=== PATIENT | male | born 2000 | race Caucasian/White ===

== ENCOUNTER 2025-04-20 14:41 | Outpatient (AMB) | payer BC, SELFPAY ==
--- NOTE | 2025-04-20 14:59 | A.OFFPC_ITS ---
Vital Signs 04/20/25 15:08 Height 5 ft 8 in Weight 231 lb 8 oz BMI 35.2 BP 116/62 Blood Pressure Location Rt brachial Position Sitting Respiration 15 Pulse 80 Pulse Source Pulse Oximeter Temp 98 F Temp Source Temporal Artery Scan Pulse Oximetry (%) 98 Oxygen Delivery Method Room Air Intake Visit Reasons: requesting CPE Intake Note: Andrew presents in the office today to establish care. 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 ?? Prior PCP:?[facility] Last office visit/CPE:? > 1 yr Acute issue(s):? Est Care ?? PMHx:?Epistaxis SurgHx:?None FHx:? Mom: HTN. Dad: IBS. SocHx: Nonsmoker. EtOH: 3 dr a week. No drugs PFSH Medical History (Updated 04/20/25 @ 15:59 by Mil Hall MD) Bleeding nose Family History (Updated 04/20/25 @ 15:15 by Bernadette Cramer CMA) Mother FH: mental illness Anxiety and depression Substance abuse Alcoholism Hypertension Father FH: mental illness Anxiety and depression Substance abuse Alcoholism Maternal Grandmother Hypertension Hyperlipidemia Social History (Updated 04/20/25 @ 15:08 by Bernadette Cramer CMA) Housing: Apartment Alcohol intake: current Patient Tobacco Use Status: Never used Tobacco e-Cigarette/Vaping Use: Never Used Second Hand Smoke Exposure: Yes Use of substances other than those prescribed or required for medical reasons: No service: No Current occupational status: employed 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 1. Little interest or pleasure in doing things: not at all 2. Feeling down, depressed, or hopeless: not at all 3. Trouble falling or staying asleep, or sleeping too much: not at all 4. Feeling tired or having little energy: not at all 5. Poor appetite or overeating: not at all 6. Feeling bad about yourself - or that you are a failure or have let yourself or your family down: not at all 7. Trouble concentrating on things, such as reading the newspaper or watching television: not at all 8. Moving or speaking so slowly that other people could have noticed. Or the opposite - being so fidgety or restless that you have been moving around a lot more than usual: not at all 9. Thoughts that you would be better off or of hurting yourself in some way: not at all Total score: 0 Depression Screening Interpretation: Negative Depression Screening Done: Yes 00525 - PHQ-9 Billing: Yes Source: Developed by Drs. Sterling Mcguire, Inocencia Carver, Dionicio Alex and colleagues, with an educational leeanna from [employer]. Thrive Questionnaire Date Thrive assessed: 04/20/25 I am a: Patient What is your living situation today?: I have a steady place to live Within the past 12 months, did the food you bought not last and you didn't have the money to get more?: Never true Within the past 12 months, did you worry whether your food would run out before you got money to buy more?: Never true Do you have trouble paying for medicines?: No Do you have trouble getting transportation to medical appointments?: No Do you have trouble paying your heating and electricity bill?: No Do you have trouble taking care of your child, family member or friend?: No Do you have trouble with day-to-day activities such as bathing, preparing meals, shopping, managing finances, etc.?: No Are you currently unemployed and looking for a job?: No Are you interested in more education?: No Please select the resources that you would like help with: None Currently or been in a relationship where the following occur: No concerns reported THRIVE Score: 0 AUDIT C Alcohol Use Questionnaire (AUDIT-C) 1. How often do you have a drink containing alcohol?: 2-3 times a week 2. How many drinks containing alcohol do you have on a typical day when you are drinking?: 1 or 2 3. How often do you have six or more drinks on one occasion?: Never Total Score: 3 ROLANDO-7 AMB Questionnaire ROLANDO-7 Date ROLANDO - 7 assessed: 04/20/25 Feeling nervous, anxious, or on edge: 1 = Several days Not being able to stop or control worryin = Not at all Worrying too much about different things: 1 = Several days Trouble relaxin = Not at all Being so restless that it is hard to sit still: 0 = Not at all Becoming easily annoyed or irritable: 0 = Not at all Feeling afraid as if something awful might happen: 0 = Not at all Total ROLANDO-7 score (0-4 normal; 5-9 mild; 10-14 moderate; 15-21 severe): 2 Source: Developed by Drs. Sterling Mcguire, Inocencia Carver, Dionicio Alex and colleagues, with an educational leeanna from [employer]. ROLANDO-7 Assessment Billing ROLANDO-7 Assessment Tool: ROLANDO-7 Assessment 55940 Review of Systems Const Denies chills, Denies fatigue, Denies fever(s), Denies headache(s) and Denies weakness Eyes Denies change in vision ENT Denies dizziness and Denies headache(s) Card Denies chest pain, Denies lightheadedness, Denies dyspnea and Denies other (Palpitations) Resp Denies cough, Denies dyspnea, Denies wheezing and Denies other ( shortness of breath) GI Denies abdominal pain, Denies melena, Denies hematochezia, Denies change in bowel habits, Denies dyspepsia and Denies nausea Denies hematuria and Denies dysuria Musc Denies numbness and Denies tingling Skin/Breast Denies rash, Denies unusual bruising and Denies wounds Neuro Denies dizziness, Denies headache(s), Denies numbness, Denies Sensory deficit (Neuro), Denies tingling, Denies paresthesias and Denies weakness Psych Denies anxiety and Denies depression Endo Denies fatigue Connor/Lymph Denies easy bleeding and Denies easy bruising Aller/Immun Denies wheezing Physical exam (Primary Care) Vital Signs: Last Vital Signs Temp 98 F 04/20/25 15:08 Pulse 80 04/20/25 15:08 Resp 15 04/20/25 15:08 BP 116/62 04/20/25 15:08 Pulse Ox 98 04/20/25 15:08 Oxygen Delivery Method Room Air 04/20/25 15:08 BMI result Body Mass Index 35.2 Tobacco/Smoking Status: Tobacco use Status Tobacco use date assessed 04/20/25 04/20/25 15:12 Patient Tobacco Use Status Never used Tobacco 04/20/25 15:12 e-Cigarette/Vaping Use Never Used 04/20/25 15:12 PHQ-9: PHQ-9 Score PHQ-9: Total score 0 04/20/25 15:49 Depression Screening Interpretation: Negative Thrive Assessment: Date of Thrive Assessment Date Thrive assessed 04/20/25 04/20/25 15:02 Currently or been in a relationship where the following occur: No concerns reported Const General: no acute distress and well developed Nutritional Appearance: well nourished Orientation/consciousness: patient oriented x3 HENMT Head: Yes normocephalic and Yes atraumatic Ears: hearing grossly normal bilaterally and TM's normal bilaterally General nose exam: Normal external nose present and Normal nares present Mouth: Normal oral and palatal mucosa present and moist mucous membranes Teeth and gingiva: dentition normal Throat: Yes posterior oropharynx normal Eyes General: appearance normal, both eyes and all related structures Pupils: Equal, round and reactive pupils present EOM: EOMs intact bilaterally Neck Neck: Yes normal visual inspection, Yes no lymphadenopathy and Yes trachea midline Thyroid: Thyroid normal Carotids: no bruits Lymphatic: no lymphadenopathy noted Chest Chest palpation & inspection: normal inspection of the chest Resp Effort & Inspection: normal respiratory effort Auscultation: clear to auscultation bilaterally Cardio Rate: regular rate Rhythm: regular rhythm Heart sounds: S1 normal heart sound present, S2 normal heart sound present, no gallops, no murmurs and no rubs Bruits: no abdominal aortic bruits and no carotid bruits GI Palpation (GI): No Abdominal aortic bruit present, Soft to palpation, nontender, No hepatosplenomegaly present and No Rebound tenderness present Auscultation: normal bowel sounds General: Yes no CVA tenderness Back/Spine/Pelvis Back: no CVA tenderness Cervical Spine: cervical ROM normal and No Cervical spine tenderness Thoracic/Lumbar Spine: thoraco-lumbar ROM normal, No pain with thoraco-lumbar ROM, No thoracic spinal tenderness and No lumbar spinal tenderness Skin Lesions: no lesions Rashes: no rashes Trauma: no lacerations or abrasions Wounds: no wounds Nails: normal Neuro General: patient oriented x3 and gait normal Cranial nerves: Yes Equal, round and reactive pupils present Cognition (Neuro): normal cognition Gait exam (Neuro): Normal gait present Motor exam (neuro): 5/5 motor strength present throughout Sensory Exam: No Sensory deficit (Neuro) Deep tendon reflexes (DTR's): Right patellar reflex intensity grade: 2+ and Left patellar reflex intensity grade: 2+ Extrem General: Yes normal to inspection and No edema Psych Appearance: grossly normal Affect: normal affect Attitude: cooperative Thought process: Normal thought process present Coding Level of Care Code Est Pt Level 3 (97832) Est Pt Prev Care 18-39y(76130) Diagnoses Adult general medical exam Z00.00 Obesity, Class II, BMI 35-39.9 E66.812 Additional Codes ROLANDO-7 Assessment Billing - ROLANDO-7 Assessment Tool: ROLANDO-7 Assessment 07696 ([id number]) PHQ-9 - 70560 - PHQ-9 Billing: Yes ([id number]) Assessment & Plan Assessment & Plan (1) Adult general medical exam: Code(s): Z00.00 - Encounter for general adult medical examination without abnormal findings Category: Medical Plan: 25-year-old male presents as new patient for complete physical exam Exam within normal limits except as described below Encouraged healthy diet with active lifestyle and plenty of exercise (2) Obesity, Class II, BMI 35-39.9: Code(s): E66.812 - Obesity, class 2 Category: Medical Plan: Patient is working diet and exercise Orders: Orders UA CC w/rflx Micro + Cult Today Z00.00 - Encounter for general adult medical examination without abnormal findings Comprehensive [place]. Panel Fast Today Z00.00 - Encounter for general adult medical examination without abnormal findings Microalbumin, Random (w Creat) Today I10 - Essential (primary) hypertension, Z00.00 - Encounter for general adult medical examination without abnormal findings Lipid Panel Today Z00.00 - Encounter for general adult medical examination without abnormal findings TSH reflex Free T4 Today Z00.00 - Encounter for general adult medical examination without abnormal findings Hemoglobin A1c Today R73.01 - Impaired fasting glucose, Z00.00 - Encounter for general adult medical examination without abnormal findings
[2025-04-20 15:08] VITALS: BP 116/62; PULSE 80; RESP 15; TEMP 36.6; O2SAT 98; BMI 35.2
--- OUTSIDE RECORDS SUMMARY | 2025-04-20 19:37 | XMS_ITS | Encounter Summary ---
Author Organization [facility] Address [address] [place] [address] Phone Care Team Providers Care Dental Equipment Installer And Servicer Name Role Phone Unavailable Primary Care Provider Unavailabl e Encounter Details Date Type Department Care Team (Late st Contact Info) Description 12/15/2014 Documentation [facility] [address] [place] [address] Family Medicine, Physician [place] [address] Social History Tobacco Use Types Packs/Day Years Used Date Smoking Tobacco: Never Assessed Sex and Gender Information Value Date Recorded Sex Assigned at Not on file Legal Sex Male 4:57 PM EDT Gender Identity Not on file Sexual Orientation Not on file documented as of this encounter Plan of Treatment Not on file documented as of this encounter Visit Diagnoses Not on filedocumented in this encounter
--- OUTSIDE RECORDS SUMMARY | 2025-04-20 19:37 | XMS_ITS | Encounter Summary ---
Author Organization [facility] Address [address] [place] [address] Phone Care Team Providers Care Lens Grinder Name Role Phone Unavailable Primary Care Provider Unavailabl e Encounter Details Date Type Department Care Team (Late st Contact Info) Description 02/17/2015 Documentation [facility] [address] [place] [address] Family Medicine, Physician [facility] [place] [address] Social History Tobacco Use Types Packs/Day Years [...]
--- OUTSIDE RECORDS SUMMARY | 2025-04-20 19:37 | XMS_ITS | Encounter Summary ---
Author Organization [facility] Address [address] [place] [address] Phone Care Team Providers Care Hangersmith Name Role Phone Unavailable Primary Care Provider Unavailabl e Encounter Details Date Type Department Care Team (Late st Contact Info) Description 06/15/2015 Documentation [facility] [address] [place] [address] Family Medicine, Physician [facility] [place] [address] Social History Tobacco Use Types Packs/Day Years [...]
--- OUTSIDE RECORDS SUMMARY | 2025-04-20 19:37 | XMS_ITS | Encounter Summary ---
Author Organization [facility] Address [address] [place] [address] Phone Care Team Providers Care Honey Liquefier Name Role Phone Unavailable Primary Care Provider Unavailabl e Encounter Details Date Type Department Care Team (Late st Contact Info) Description 12/15/2014 Documentation [facility] [address] [place] [address] Family Medicine, Physician [facility] [place] [address] Social History Tobacco Use Types Packs/Day Years [...]
--- OUTSIDE RECORDS SUMMARY | 2025-04-20 19:38 | XMS_ITS | Encounter Summary ---
Author Organization [facility] Address [address] [place] [address] Phone Care Team Providers Care Roving Changer Name Role Phone Unavailable Primary Care Provider Unavailabl e Encounter Details Date Type Department Care Team (Late st Contact Info) Description 10/11/2013 Documentation [facility] [address] [place], [place] [id number] Family Medicine, Physician [facility] [place] [address] Social History Tobacco Use Types Packs/Day Years [...]
--- OUTSIDE RECORDS SUMMARY | 2025-04-20 19:38 | XMS_ITS | Encounter Summary ---
Author Organization [facility] Address [address] [place] [address] Phone Care Team Providers Care Finisher Hot Strip Name Role Phone Unavailable Primary Care Provider Unavailabl e Encounter Details Date Type Department Care Team (Late st Contact Info) Description 06/27/2015 Documentation [facility] [address] [place] [address] Family Medicine, Physician [facility] [place] [address] Social History Tobacco Use Types Packs/Day Years [...]
--- OUTSIDE RECORDS SUMMARY | 2025-04-20 19:38 | XMS_ITS | Encounter Summary ---
Author Organization [facility] Address [address] [place] [address] Phone Care Team Providers Care Manager Endoscopy Name Role Phone Unavailable Primary Care Provider Unavailabl e Encounter Details Date Type Department Care Team (Late st Contact Info) Description 03/20/2012 Documentation [facility] [address] [place], [place] [id number] Family Medicine, Physician [address] [place] [address] Social History Tobacco Use Types Packs/Day Years [...]
--- OUTSIDE RECORDS SUMMARY | 2025-04-20 19:38 | XMS_ITS | Encounter Summary ---
Author Organization [facility] Address [address] [place] [address] Phone Care Team Providers Care Floorperson Name Role Phone Unavailable Primary Care Provider Unavailabl e Encounter Details Date Type Department Care Team (Late st Contact Info) Description 12/29/2015 Documentation [facility] Count includes the [facility] [address] [place], [place] [id number] Family Medicine, Physician Count includes the [facility] [place] [address] Social History Tobacco Use Types Packs/Day Years Used Date Smoking Tobacco: Never Comments:Never smoker Sex and Gender Information Value Date Recorded Sex Assigned at Not on file Legal Sex Male 4:57 PM EDT Gender Identity Not on file Sexual Orientation Not on file documented as of this encounter Plan of Treatment Not on file documented as of this encounter Visit Diagnoses Not on filedocumented in this encounter
--- OUTSIDE RECORDS SUMMARY | 2025-04-20 19:38 | XMS_ITS | Encounter Summary ---
Author Organization [facility] Address [address] [place] [address] Phone Care Team Providers Care White Mixing Operator Name Role Phone Unavailable Primary Care Provider Unavailabl e Encounter Details Date Type Department Care Team (Late st Contact Info) Description 09/04/2011 Documentation [facility] [address] [place], [place] [id number] Family Medicine, Physician [address] [place] [address] Social History Tobacco Use Types Packs/Day Years [...]
--- OUTSIDE RECORDS SUMMARY | 2025-04-20 19:38 | XMS_ITS | Encounter Summary ---
Author Organization [facility] Address [address] [place] [address] Phone Care Team Providers Care Container Repairer Name Role Phone Unavailable Primary Care Provider Unavailabl e Encounter Details Date Type Department Care Team (Late st Contact Info) Description 09/02/2012 Documentation [facility] [address] [place], [place] [id number] Family Medicine, Physician [address] [place] [address] Social History Tobacco Use Types Packs/Day Years [...]
--- OUTSIDE RECORDS SUMMARY | 2025-04-20 19:38 | XMS_ITS | Encounter Summary ---
Author Organization [facility] Address [address] [place] [address] Phone Care Team Providers Care House Fellow Name Role Phone Unavailable Primary Care Provider Unavailabl e Encounter Details Date Type Department Care Team (Late st Contact Info) Description 12/19/2016 Conversion Encounter [facility] - [address] [address] Social History Tobacco Use Types Packs/Day Years [...]
--- OUTSIDE RECORDS SUMMARY | 2025-04-20 19:38 | XMS_ITS | Encounter Summary ---
Author Organization [facility] Address [address] [place] [address] Phone Care Team Providers Care Scale Adjuster Name Role Phone Unavailable Primary Care Provider Unavailabl e Encounter Details Date Type Department Care Team (Late st Contact Info) Description 06/27/2015 Documentation [facility] [address] [place] [address] Family Medicine, Physician [facility] [place] [place] [address] Social History Tobacco Use Types Packs/Day Years [...]
--- OUTSIDE RECORDS SUMMARY | 2025-04-20 19:38 | XMS_ITS | Encounter Summary ---
Author Organization [facility] Address [address] [place] [address] Phone Care Team Providers Care Client Administrator Name Role Phone Unavailable Primary Care Provider Unavailabl e Encounter Details Date Type Department Care Team (Late st Contact Info) Description 09/04/2011 Documentation [facility] [address] [place], [place] [phone] Family Medicine, Physician [address] [place] [address] Social History Tobacco Use Types Packs/Day Years [...]
--- OUTSIDE RECORDS SUMMARY | 2025-04-20 19:38 | XMS_ITS | Clinical Summary ---
Author Organization [facility] Address [address] [place] [address] Phone Care Team Providers Care Safety Consultant Name Role Phone Unavailable Primary Care Provider Unavailabl e Allergies Active Allergy Reactions Criticality Noted Date Comments Shellfish Allergy Medications No known medications Active Problems Problem Noted Date Diagnosed Date Refused influenza vaccine 04/09/2018 Overview (04/09/2018): Refused 2018 - Dad states Mom not in favor of flu vaccine. Overweight child 09/03/2011 Immunizations Immunization Administration Dates Next Due DTaP 5 02/26/2006, 4,2002, 003,2002 HPV Vaccine 9 Valent 06/26/2015,02/16/2015,12/14 Hep A, ped/adol 12/14/2014,10/04/2013 Hep B, ped/adol 2002,2002,2002 Hib (PRP-T) 04/22/2003, 3,2002, 002 IPV 02/26/2006, 3,2002, 002 Influenza, intranasal, trivalent 03/19/2012 MMR 01/12/2003 MMRV 02/26/2006 Meningococcal Conj (Menactra) MCV4P 07/08/2018,0 12/14/2014 Pneumococcal Conjugate 04/22/2003,2002,2002, 002 Tdap 12/14/2014 Varicella 01/12/2003 Family History Medical History Relation Name Comments Allergic rhinitis Father Erick Hyperlipidemia Mother Eliecer Obesity Mother Eliecer Relation Name Status Comments Father Erick Alive Father: Allergi c rhinitis in spring, Ulcerative colitis Mother Eliecer Alive Mother: blood c lot, Migraines, Obesity, Hyperlipidemia, Elevated cholesterol Other Family history of Elevated cholesterol, Family history of *Dental caries, Family history of *CVA/Stroke, Family history of Sudden /[place] under age 55, Family history of *Heart Disease, Family history of Migraines, Family history of Asthma, Family history of *Sudden /[place] under 55 Sister [place] Alive Sister: Alive a nd well Social History Tobacco Use Types Packs/Day Years Used Date Smoking Tobacco: Never Smokeless Tobacco: Never Comments:Never smoker Alcohol Use Standard Drinks/Week Comments No 0 (1 standard drink = 0.6 oz pur e alcohol) Hunger/Food Answer Date Recorded No 07/08/2018 Stable Housing Answer Date Recorded No 05/08/2019 Transportation Concerns Answer Date Rec orded No 07/08/2018 Hazards in Home Answer Date Recorded No 07/08/2018 Financing Utilities Answer Date Recorde d No 07/08/2018 Safety at Home Answer Date Recorded No 07/08/2018 Outside Support Answer Date Recorded No 07/08/2018 Understanding Health Concerns Answer Da te Recorded No 07/08/2018 Financing Health Concerns Answer Date R ecorded No 07/08/2018 Missing School or Work Answer Date Michael rded No 07/08/2018 Sex and Gender Information Value Date Recorded Sex Assigned at Not on file Legal Sex Male 4:57 PM EDT Gender Identity Not on file Sexual Orientation Not on file Last Filed Vital Signs Vital Sign Reading Time Taken Comments Blood Pressure 117/70 10/15/2018 8:27 AM EDT Pulse 73 10/15/2018 8:27 AM EDT Temperature 36.7 C (98.1 F) 10/15/2018 8:27 AM EDT Respiratory Rate - - Oxygen Saturation - - Inhaled Oxygen Concentration - - Weight 73.9 kg (163 lb) 10/15/2018 8:27 AM EDT Height 170.6 cm (5' 7.17 ) 10/15/2018 8:27 AM ED T Body Mass Index 25.4 10/15/2018 8:27 AM EDT Plan of Treatment Health Maintenance Due Date Last Done Comments Men B Vaccine (1 of 2 - Standard) 2018 Influenza Vaccines (#1) 2024 03/19/2012 DTaP,Tdap,and Td Vaccines (7 - Td or Tdap) 12/14/2024 12/14/2014, 02/26/2006, 07/14/2003, Additional history exists COVID-19 Vaccine (2024-2 6 season) 2025 Hepatitis B Vaccines Completed 2002, 2002, 2002 HIB Vaccines Completed 04/22/2003, 07/04, 2002, Additional history exists Pneumococcal Vaccine Completed 04/22/2003, 2002, 2002, Additional history exists IPV Vaccines Completed 02/26/2006, 10/04, 2002, Additional history exists MMR Vaccines Completed 02/26/2006, 01/12/2003 Varicella Vaccines Completed 02/26/2006, 01/12/2003 Hepatitis A Vaccines Completed 12/14/2014, 10/05/19 14 HPV Vaccines Completed 06/26/2015, 02/02, 12/14/2014 Meningococcal Vaccine Completed 07/08/2018, 015 Insurance [facility]
--- OUTSIDE RECORDS SUMMARY | 2025-04-20 19:38 | XMS_ITS | Clinical Summary ---
Author Organization [facility] Address [address] [address] Phone Care Team Providers Care Equity Manager Name Role Phone Pcp, Unknown Primary Care Provider Unavailabl e Allergies Active Allergy Reactions Criticality Noted Date Comments Shellfish Containing Products 2022 Medications No known medications Active Problems No known active problems Social History Tobacco Use Types Packs/Day Years Used Date Smoking Tobacco: Never Passive Smoke Exposure: Never Smokeless Tobacco: Never Tobacco Cessation:Counseling Given: Not Answered Education Answer Date Recorded Are you interested in more education? Not on silvio e 08/31/2022 Are you concerned about learning? Not on file 08/31/2022 No 08/31/2022 No 08/31/2022 Digital Access Answer Date Recorded No 09/29/2022 No 09/29/2022 Reliable internet access at home? Not on file 09/29/2022 Device with a working camera? Not on file Sex and Gender Information Value Date Recorded Sex Assigned at Not on file Legal Sex Male 10:32 AM EDT Gender Identity Not on file Sexual Orientation Not on file Last Filed Vital Signs Vital Sign Reading Time Taken Comments Blood Pressure 126/81 09/11/2024 9:42 AM EDT Pulse 82 09/11/2024 9:42 AM EDT Temperature 36.7 C (98.1 F) 09/11/2024 9:42 AM EDT Respiratory Rate 15 09/11/2024 9:42 AM EDT Oxygen Saturation 98% 09/11/2024 9:42 AM EDT Inhaled Oxygen Concentration - - Weight 92.1 kg (203 lb) 08/19/2022 11:25 AM EDT Height - - Body Mass Index - - Plan of Treatment Health Maintenance Due Date Last Done Comments DEPRESSION SCREENING 2014 MENINGOCOCCAL VACCINES (B) (1 of 2 - Standard) 2018 HEPATITIS C SCREENING 01/12/2020 HIV ONE-TIME SCREENING (18-65 YEARS) 01/12/2020 INFLUENZA VACCINE (#1) 2024 03/19/2010 Adult Td,Tdap Booster 12/14/2024 12/14/2014 COVID-19 VACCINE ( season) 2025 01/03/2021, 12/06/2020 SMOKING Hx and SMOKELESS TOBACCO SCREENING 09/11/2025 09/11/2024 HIB VACCINES Completed 04/22/2003, 07/04, 2002, Additional history exists PNEUMOCOCCAL VACCINES (0-49 years) Aged Out 04/22/2003, 2002, 2002, Additional history exists No longer eligible based on patient's age to complete this topic HEPATITIS A VACCINES Completed 12/14/2014, 10/05/19 14 HPV VACCINES Completed 06/26/2015, 02/02, 12/14/2014 MENINGOCOCCAL VACCINES (ACWY) Completed 07/08/2018, 12/14/2014 Medical Devices Not on file [place] [address] [place] [address] PPO EPO [facility] [place] [id number] [facility] [place] [id number] [facility] [place] [id number] [facility] [place] [id number] [facility] PPO EPO Care Teams Equity Manager Relationship Specialty Start Date End Date Pcp, Unknown PCP - General 08/19/22 Additional Source Comments The information contained in this document represents components of the legal health record. It is not the complete legal health record.[facility]
--- OUTSIDE RECORDS SUMMARY | 2025-04-20 19:38 | XMS_ITS | Encounter Summary ---
Author Organization [facility] Address [address] [place] [address] Phone Care Team Providers Care Firm Administrator Name Role Phone Unavailable Primary Care Provider Unavailabl e Encounter Details Date Type Department Care Team (Late st Contact Info) Description 10/11/2013 Documentation [facility] [address] [place], [place] [phone] Family Medicine, Physician [place] [address] Social History Tobacco Use Types Packs/Day Years [...]
--- OUTSIDE RECORDS SUMMARY | 2025-04-20 19:38 | XMS_ITS | Encounter Summary ---
Author Organization [facility] Address [address] [place] [address] Phone Care Team Providers Care Export Specialist Name Role Phone Unavailable Primary Care Provider Unavailabl e Encounter Details Date Type Department Care Team (Late st Contact Info) Description 12/29/2015 Documentation [facility] [address] [place], [place] [phone] Family Medicine, Physician [facility] [place] [address] Social History Tobacco Use Types Packs/Day Years [...]
--- OUTSIDE RECORDS SUMMARY | 2025-04-20 19:38 | XMS_ITS | Encounter Summary ---
Author Organization [facility] Address [address] [place] [address] Phone Care Team Providers Care Compressed Gas Plant Worker Name Role Phone Unavailable Primary Care Provider Unavailabl e Encounter Details Date Type Department Care Team (Late st Contact Info) Description 03/20/2012 Documentation [facility] [address] [place], [place] [phone] Family Medicine, Physician [address] [place] [address] Social History Tobacco Use Types Packs/Day Years [...]
--- OUTSIDE RECORDS SUMMARY | 2025-04-20 19:38 | XMS_ITS | Encounter Summary ---
Author Organization [facility] Address [address] [place] [address] Phone Care Team Providers Care Fire Management Officer Name Role Phone Unavailable Primary Care Provider Unavailabl e Encounter Details Date Type Department Care Team (Late st Contact Info) Description 09/23/2012 Documentation [facility] [address] [place], [place] [phone] Family Medicine, Physician [address] [place] [address] Social History Tobacco Use Types Packs/Day Years [...]
--- OUTSIDE RECORDS SUMMARY | 2025-04-20 19:38 | XMS_ITS | Encounter Summary ---
Author Organization [facility] Address [address] [place] [address] Phone Care Team Providers Care Varnish Blender Name Role Phone Unavailable Primary Care Provider Unavailabl e Encounter Details Date Type Department Care Team (Late st Contact Info) Description 09/23/2012 Documentation [facility] [address] [place], [place] [phone] Family Medicine, Physician [address] [place] [address] Social History Tobacco Use Types Packs/Day Years [...]
== END 2025-04-20 15:59 | disposition home or self-care (01) ==
LOC: HO.HMCFM 14:42
PROVIDERS: Visit Provider Family Medicine
DX: Z00.00 Encounter for general adult medical examination without abnormal findings (principal); E66.812 Obesity, class 2; Z68.35 Body mass index [BMI] 35.0-35.9, adult

== ENCOUNTER → 2025-04-20 14:41 | Outpatient (BNVA) | payer BC, SELFPAY | PROVIDERS: Visit Provider Family Medicine | DX: Z00.00 Encounter for general adult medical examination without abnormal findings (principal); E66.812 Obesity, class 2; Z68.35 Body mass index [BMI] 35.0-35.9, adult | CPT/HCPCS: 96127 ==